=== PATIENT | male | born 1970 ===

== ENCOUNTER → 2024-09-20 07:50 | Outpatient (BNVA) | payer MEDICAID, SELFPAY | PROVIDERS: PCP Physician Assistant; Visit Provider Urology | DX: R36.1 Hematospermia (principal); N40.0 Benign prostatic hyperplasia without lower urinary tract symptoms | CPT/HCPCS: 81003; 99202 ==

== ENCOUNTER 2024-10-14 10:17 | Outpatient (REF) | payer MEDICAID, SELFPAY ==
--- NOTE | ~2024-10-14 | US_ITS ---
CLINICAL HISTORY: R36.1 - Hematospermia, BPH US retroperitoneum with color Doppler Comparison: None Findings: Right kidney normal size and echotexture, 12.0 cm length. No hydronephrosis. Normal color flow. No nephrolithiasis. No renal masses. Left kidney normal size and echotexture, 11.5 cm in length. No hydronephrosis. Normal color flow. No nephrolithiasis. Renal cortical cysts probably benign upper pole measuring 10 x 13 x 9 mm. Urinary bladder is unremarkable. Prevoid volume 149 mL. Postvoid volume 9.7 mL. Ureteral jets are visualized bilaterally. Prostate gland measures 2.7 x 3.6 x 4.1 cm. Equivocal cyst within the prostate gland. Impression: 1. Probable incidental renal cortical cysts on the left, six-month follow-up ultrasound would suffice. 2. No elevated postvoid residual volume. 3. Prostate volume at 21.5 cc. Equivocal cyst within the prostate gland. This document has been electronically signed by: Ronaldo Ta MD on 10/16/2024 13:56:22
--- OUTSIDE RECORDS SUMMARY | 2024-10-14 12:14 | XMS_ITS | Clinical Summary ---
Author Organization [facility] Address [address] [place] [address] Care Team Providers Care Dural Mechanic Name Role Phone Amy Ashton PA-C Primary Care Provider + [phone] Source Comments PLEASE NOTE, if this patient is a minor, it may be UNLAWFUL to discuss sensitive information that is contained in these records (such as FAMILY PLANNING, MENTAL HEALTH or SUBSTANCE ABUSE) with the minor patient's parent or other person without the patient's specific authorization.[facility] Allergies No known active allergies Medications nystatin-triamc inolone (MYCOLOG) 100,000-0.1 unit/gram-% ointmentIndicat ions:Balanitis Apply topically 2 (two) times daily 60 g 1 9 Active tamsulosin (FLOMAX) 0.4 mg 24 hr capsuleIndicati ons:Lower urinary tract symptoms (LUTS) Take 1 Cap by mouth nightly at bedtime 30 Cap 11 9 Active Active Problems Problem Noted Date Diagnosed Date Mild hyperlipidemia 08/20/2022 Family history of optic nerve atrophy 10/31/2017 Encounters Date Type Department Care Team Description 07/19/2024 3:40 PM EST Telemedicine Visit [address] [id number] Amy Ashton PA-C Hematospermia (Primary Dx); Mild hyperlipidemia 07/19/2024 Travel from Last 3 Months Social History Tobacco Use Types Packs/Day Years Used Date Smoking Tobacco: Never Smokeless Tobacco: Never Tobacco Cessation:Counseling Given: Yes Alcohol Use Standard Drinks/Week Comments No 0 (1 standard drink = 0.6 oz pur e alcohol) Social Connections Answer Date Recorded Connectedness 0 07/03/2021 Financial Resource Strain Answer Date R ecorded Financial Resource Strain 0 2020 Stress Answer Date Recorded Stress 0 07/03/2021 Physical Activity Answer Date Recorded Physical Activity 0 04/03/2019 Food Insecurity Answer Date Recorded Food 0 07/03/2021 Transportation Needs Answer Date Record ed Transportation 0 07/03/2021 Housing Stability Answer Date Recorded Housing 0 07/03/2021 Safety and Environment Answer Date Harley rded Safety 0 04/03/2019 Utilities Answer Date Recorded Utilities 0 07/03/2021 Employment Answer Date Recorded Stress 0 10/29/2021 Sex and Gender Information Value Date Recorded Sex Assigned at Male 11/02/2017 5:48 PM PDT Legal Sex Male 9:28 AM PDT Gender Identity Male 11/02/2017 5:48 PM PDT Sexual Orientation Straight 11/02/2017 5: 48 PM PDT Last Filed Vital Signs Vital Sign Reading Time Taken Comments Blood Pressure 122/80 08/29/2023 8:58 AM EST Pulse 76 08/29/2023 8:58 AM EST Temperature 36.9 ??C (98.4 ??F) 08/29/2023 8:58 AM ES T Respiratory Rate 16 08/29/2023 8:58 AM EST Oxygen Saturation 98% 08/20/2022 8:47 AM EST Inhaled Oxygen Concentration - - Weight 96.6 kg (212 lb 14.4 oz) 08/29/2023 8:58 AM EST Height 200.7 cm (6' 7 ) 08/29/2023 8:58 AM EST Body Mass Index 23.98 08/29/2023 8:58 AM EST Plan of Treatment Health Maintenance Due Date Last Done Comments CT Colonography 2017 Colonoscopy 2017 Colorectal Cancer Screening 2017 FIT/gFOBT 2017 Fecal DNA 2017 Flexible Sigmoidoscopy 2017 Alcohol and Drug Screen 08/11/2024 08/29/19, 08/20/2022, 07/03/2021, Additional history exists Depression Annual Screen 08/11/2024 08/29/2023 Hypertension Screening (#1) 08/28/2024 Annual Preventive Care Visit 08/29/2024 08/29/2023, 08/20/2022, 07/03/2021, Additional history exists Imm-DTaP/Tdap/Td (1 - Tdap) 10/17/2024 Postponed from 1991 (Patient postponement) Imm-Hepatitis B (1 of 3 - 19+ 3-dose series) 10/17/2024 Postponed from 1991 (Patient postponement) Imm-Zoster, Recombinant (1 of 2) 10/17/2024 Postponed from 2022 (Patient postponement) Tobacco Screening 07/19/2025 07/19/2024 Diabetes Screening 07/21/2027 07/21/2024, 0 08/29/2023, 08/29/2023, Additional history exists Lipid Screening 07/21/2029 07/21/2024, 08/11, 08/20/2022, Additional history exists HIV Screening Completed 10/31/2017 Hepatitis C Screening Completed 10/31/2017 [id number] Discontinued Imm-Influenza Discontinued Procedures Procedure Name Priority Date/Time Associated Diagnosis Comments REFERRAL TO UROLOGY Routine 09/20/2024 3 :00 AM EST Hematospermia RFLX - REFLEXIVE URINE CULTURE Routine 07/21/2024 1:28 PM EST ASSAY OF PROSTATE SPECIFIC ANTIGEN TOTAL Routine 07/21/2024 1:28 PM EST Hematospermia Mild hyperlipidemia BLOOD COUNT COMPLETE AUTO&AUTO DIFRNTL WBC Routine 07/21/2024 1:28 PM EST Hematospermia Mild hyperlipidemia COMPREHENSIVE METABOLIC PANEL Routine 07/21/2024 1:28 PM EST Hematospermia Mild hyperlipidemia LIPID PANEL Routine 07/21/2024 1:28 PM EST Hematospermia Mild hyperlipidemia TSH W/RFLX FREE T4 Routine 07/21/2024 1: 28 PM EST Hematospermia Mild hyperlipidemia URINALYSIS, COMPLETE W/REFLEX TO CULTURE Routine 07/21/2024 1:28 PM EST Hematospermia Mild hyperlipidemia ANTIBODY HIV-1&HIV-2 SINGLE RESULT Routine 10/31/2017 3:08 PM EDT Routine general medical examination at a health care facility Balanitis Screening examination for venereal disease HEPATITIS C ANTIBODY Routine 10/31/2017 3:08 PM EDT Routine general medical examination at a health care facility Balanitis Screening examination for venereal disease from Last 3 Months or Most Recently Relevant to Health Maintenance Results * REFERRAL TO UROLOGY (09/20/2024 3:00 AM EST) 09/20/2024 3:00 AM EST us Amy Ashton PA-C REFERRAL Final Result * TSH W/RFLX FREE T4 (07/21/2024 1:28 PM EST) TSH W/REFLEX TO FT4 2.50 0.40 - 4.50 mIU/L [facility] Blood Blood / Unknown 07/21/2024 1 :28 PM EST 07/21/2024 1:29 PM EST Narrative [facility] - 07/22/2024 5:35 AM EST FASTING:NO us Amy Ashton PA-C LAB - BLOOD DRAW Edited Resu lt - Final [facility] [address] [address], [facility] [address] [address] * URINALYSIS, COMPLETE W/REFLEX TO CULTURE (07/21/2024 1:28 PM EST) COLOR YELLOW YELLOW [facility] APPEARANCE CLEAR CLEAR [facility] SPECIFIC GRAVITY 1.022 1.001 - 1.035 [facility] URINE PH < OR = 5.0 5.0 - 8.0 [facility] GLUCOSE NEGATIVE NEGATIVE [facility] BILIRUBIN NEGATIVE NEGATIVE [facility] KETONES NEGATIVE NEGATIVE [facility] OCCULT BLOOD NEGATIVE NEGATIVE [facility] URINE PROTEIN NEGATIVE NEGATIVE [facility] NITRITE NEGATIVE NEGATIVE [facility] LEUKOCYTE ESTERASE NEGATIVE NEGATIVE [facility] URINE LEUKOCYTES NONE SEEN < OR = 5 [facility] RBC 0-2 0 - 2 /HPF [facility] SQUAMOUS EPITHELIAL CELLS NONE SEEN < OR = 5 [facility] BACTERIA NONE SEEN NONE SEEN [facility] HYALINE CAST NONE SEEN NONE SEEN [facility] SEE NOTE See Below [facility] Comment: This urine was analyzed for the presence of WBC, RBC, bacteria, casts, and other formed elements. Only those elements seen were reported. Urine Urine specimen / Unknown 07/21/2024 1:28 PM EST 07/21/2024 1:29 PM EST Narrative [facility] - 07/22/2024 5:35 AM EST FASTING:NO Amy Ashton PA-C LAB - NO BLOOD DRAW Edited R [employer] Performing Organization Address [facility] de Phone Number [facility] [address] [address], [facility] [address] [address] * RFLX - REFLEXIVE URINE CULTURE (07/21/2024 1:28 PM EST) REFLEXIVE URINE CULTURE See Below [facility] Comment:NO CULTURE INDICATED 07/21/2024 1:28 PM EST 07/21/2024 1:29 PM EST Narrative [facility] - 07/22/2024 5:35 AM EST FASTING:NO Amy Ashton PA-C LAB - NO BLOOD DRAW Edited R [employer] - Final Performing Organization Address [facility] de Phone Number [facility] [address] [address], [facility] [address] [address] * (ABNORMAL) BLOOD COUNT COMPLETE AUTO&AUTO DIFRNTL WBC (07/21/2024 1:28 PM EST) WHITE BLOOD CELL COUNT 11.4(H) 3.8 - 10.8 Thousand/ uL [facility] RED BLOOD CELL COUNT 5.32 4.20 - 5.80 Million/u L [facility] HEMOGLOBIN 15.5 13.2 - 17.1 g/dL [facility] HEMATOCRIT 46.4 38.5 - 50.0 % [facility] MCV 87.2 80.0 - 100.0 fL [facility] MCH 29.1 27.0 - 33.0 pg [facility] MCHC 33.4 32.0 - 36.0 g/dL [facility] Comment: For adults, a slight decrease in the calculated MCHC value (in the range of 30 to 32 g/dL) is most likely not clinically significant; however, it should be interpreted with caution in correlation with other red cell parameters and the patient's clinical condition. RDW 12.8 11.0 - 15.0 % [facility] PLATELET COUNT 284 140 - 400 Thousand/ uL [facility] MPV 11.2 7.5 - 12.5 fL [facility] ABSOLUTE NEUTROPHILS 5,312 1,500 - 7,800 cells/uL [facility] ABSOLUTE LYMPHOCYTES 4,492(H) 850 - 3,900 cells/uL [facility] ABSOLUTE MONOCYTES 1,174(H) 200 - 950 cells/uL [facility] ABSOLUTE EOSINOPHILS 342 15 - 500 cells/uL [facility] ABSOLUTE BASOPHILS 80 0 - 200 cells/uL [facility] NEUTROPHILS PCT 46.6 % [employer] [facility] LYMPHOCYTES 39.4 % [facility] MONOCYTES 10.3 % [facility] EOSINOPHILS 3.0 % [facility] BASOPHILS 0.7 % [facility] Blood Blood / Unknown 07/21/2024 1 :28 PM EST 07/21/2024 1:29 PM EST Narrative [facility] - 07/22/2024 5:35 AM EST FASTING:NO us Amy Ashton PA-C LAB - BLOOD DRAW Final Resul t [facility] [address] [place] [address], [facility] [address] [address] * ASSAY OF PROSTATE SPECIFIC ANTIGEN TOTAL (07/21/2024 1:28 PM EST) PSA, TOTAL 0.41 < OR = 4.00 ng/mL [facility] Comment: The total PSA value from this assay system is standardized against the WHO standard. The test result will be approximately 20% lower when compared to the equimolar-standardized total PSA (Jeny Addie). Comparison of serial PSA results should be interpreted with this fact in mind. This test was performed using the Siemens chemiluminescent method. Values obtained from different assay methods cannot be used interchangeably. PSA levels, regardless of value, should not be interpreted as absolute evidence of the presence or absence of disease. Blood Blood / Unknown 07/21/2024 1 :28 PM EST 07/21/2024 1:29 PM EST Narrative [facility] - 07/22/2024 5:35 AM EST FASTING:NO us Amy Ashton PA-C LAB - BLOOD DRAW Edited Resu lt - Final [facility] [address] [address], [facility] [address] [address] * (ABNORMAL) LIPID PANEL (07/21/2024 1:28 PM EST) CHOLESTEROL, TOTAL 232(H) <200 mg/dL [facility] HDL CHOLESTEROL 42 > OR = 40 mg/dL [facility] TRIGLYCERIDES 220(H) <150 mg/dL [facility] Comment: If a non-fasting specimen was collected, consider repeat triglyceride testing on a fasting specimen if clinically indicated. Victor Hugo et al. J. of Clin. Lipidol. 2015;9:129-169. LDL-CHOLESTEROL 151(H) 99 mg/dL (calc) [facility] Comment: Reference range: <100 Desirable range <100 mg/dL for primary prevention; ?? <70 mg/dL for patients with CHD or diabetic patients with > or = 2 CHD risk factors. LDL-C is now calculated using the Radha calculation, which is a validated novel method providing better accuracy than the Friedewald equation in the estimation of LDL-C. Albert SERRANO et al. MARTÍNEZ. 2013;310(19): 1694-7466 (http://education.Biocept.Gameology/faq/EWU436) CHOL/HDLC RATIO 5.5(H) <5.0 (calc) [facility] NON-HDL CHOLESTEROL 190(H) <130 mg/dL (calc) [facility] Comment: For patients with diabetes plus 1 major ASCVD risk factor, treating to a non-HDL-C goal of <100 mg/dL (LDL-C of <70 mg/dL) is considered a therapeutic option. Blood Blood / Unknown 07/21/2024 1 :28 PM EST 07/21/2024 1:29 PM EST Narrative [facility] - 07/22/2024 5:35 AM EST FASTING:NO us Amy Ashton PA-C LAB - BLOOD DRAW Final Resul t [facility] [address] [address], [facility] [address] [place] [phone] * (ABNORMAL) COMPREHENSIVE METABOLIC PANEL (07/21/2024 1:28 PM EST) Pathologist [facility] GLUCOSE 97 65 - 139 mg/dL [facility] Comment: ?Non-fasting reference interval UREA NITROGEN (BUN) 19 7 - 25 mg/dL [facility] CREATININE (blood) 0.81 0.70 - 1.30 mg/dL [facility] EGFR 107 > OR = 60 mL/min/1. 73m2 [facility] BUN/CREATININE RATIO SEE NOTE: [facility] Comment: ?? Not Reported: BUN and Creatinine are within ?? reference range. ? SODIUM 139 135 - 146 mmol/L [facility] POTASSIUM 4.2 3.5 - 5.3 mmol/L [facility] CHLORIDE 103 98 - 110 mmol/L [facility] CARBON DIOXIDE 27 20 - 32 mmol/L [facility] CALCIUM 9.5 8.6 - 10.3 mg/dL [facility] PROTEIN, TOTAL 6.9 6.1 - 8.1 g/dL [facility] ALBUMIN 4.5 3.6 - 5.1 g/dL [facility] GLOBULIN 2.4 1.9 - 3.7 g/dL (calc) [facility] ALBUMIN/GLOBULI N RATIO 1.9 1.0 - 2.5 (calc) [facility] BILIRUBIN, TOTAL 0.4 0.2 - 1.2 mg/dL [facility] ALKALINE PHOSPHATASE 34(L) 35 - 144 U/L [facility] AST 20 10 - 35 U/L [facility] ALT 32 9 - 46 U/L [facility] Blood Blood / Unknown 07/21/2024 1 :28 PM EST 07/21/2024 1:29 PM EST Narrative [facility] - 07/22/2024 5:35 AM EST FASTING:NO Amy Ashton PA-C LAB - BLOOD DRAW Edited Resu lt - Final Performing Organization Address City/[facility] Co de Phone Number [facility] [address] [address], [facility] [address] [address] * HEPATITIS C ANTIBODY (10/31/2017 3:08 PM EDT) [facility] HEPATITIS C VIRUS SCREEN NEGATIVE NEGATIVE [facility] Blood specimen (specimen) Blood / Unknown 10/31/2017 3:08 PM EDT 10/31/2017 3:15 PM EDT Narrative [facility] - 10/31/2017 8:18 PM EDT [employer] [address] [place] [address] PT ID [id number] ORD# [id number] Amy Ashton PA-C LAB - BLOOD DRAW Final Resul t Performing Organization Address [facility]/ZIP Co de Phone Number [address] [address], * HIV-1 & HIV-2 ANTIBODIES (10/31/2017 3:08 PM EDT) Pathologist [facility] HIV 1 AND 2 ANTIBODY SCREEN NEGATIVE NEGATIVE [facility] Comment: This assay is a 4th generation assay allowing for earlier detection of HIV infection by detecting the presence of the HIV-1 p24 antigen as well as the traditional antibodies to HIV type 1 (including group O) and type 2. ??Use of a 4th generation assay is the current CDC recommendation for HIV screening. Blood specimen (specimen) Blood / Unknown 10/31/2017 3:08 PM EDT 10/31/2017 3:15 PM EDT [facility] - 10/31/2017 8:19 PM EDT [facility] [address] [place] [address] PT ID [id number] ORD# [id number] us Amy Ashton PA-C LAB - BLOOD DRAW Final Resul t [address] [address], from Last 3 Months or Most Recently Relevant to Health Maintenance Insurance [facility] [facility] [employer] Care Teams Dural Mechanic Relationship Specialty Start Date End Date Amy Ashton PA-C [address] [place] [address] PCP - General Internal Medicine 04/12/21
== END 2024-10-14 10:18 | disposition home or self-care (01) ==
LOC: HO.US 10:17
PROVIDERS: PCP Physician Assistant; Visit Provider Urology
DX: R36.1 Hematospermia (principal); N40.0 Benign prostatic hyperplasia without lower urinary tract symptoms
CPT/HCPCS: 76770

== ENCOUNTER → 2024-10-14 10:25 | Outpatient (BNV) | payer MEDICAID, SELFPAY | PROVIDERS: PCP Physician Assistant; Visit Provider Radiology Diagnostic Radiology | DX: R36.1 Hematospermia (principal) | CPT/HCPCS: 76770 ==

== ENCOUNTER 2024-11-15 07:47 | Outpatient (AMB) | payer MEDICAID, SELFPAY ==
--- OUTSIDE RECORDS SUMMARY | 2024-11-15 07:51 | XMS_ITS | Clinical Summary ---
Author Organization [facility] Address [address] [place] [address] Care Team Providers Care Internal Investigator Name Role Phone Amy Ashton PA-C Primary Care Provider [phone] Source Comments PLEASE NOTE, if this patient [...] Family history of optic nerve atrophy 10/31/2017 Social History Tobacco Use Types Packs/Day Years [...] Health Maintenance Due Date Last Done Comments Anxiety Screening 1972 Imm-DTaP/Tdap/Td (1 - Tdap) 1991 Imm-Hepatitis B (1 of 3 - 19 + 3-dose series) 1991 CT Colonography 2017 Colonoscopy 2017 Colorectal Cancer Screening 2017 FIT/gFOBT 2017 Fecal DNA 2017 Flexible Sigmoidoscopy 2017 Imm-Zoster, Recombinant (1 of 2) 2022 Alcohol and Drug Screen 08/11/2024 08/29/19 24, 08/20/2022, 07/03/2021, Additional history exists Depression Annual Screen 08/11/2024 08/29/2023 Hypertension Screening (#1) 08/28/2024 Annual Preventive Care Visit 08/29/2024, 08/20/2022, 07/03/2021, Additional history exists Tobacco Screening 07/19/2025 07/19/2024 Diabetes Screening 07/21/2027 07/21/2024, 0 08/29/2023, 08/29/2023, Additional history exists Lipid Screening 07/21/2029 07/21/2024, 08/11, 08/20/2022, Additional history exists HIV Screening Completed 10/31/2017 Hepatitis C Screening Completed 10/31/2017 [id number] Discontinued Imm-Influenza Discontinued Procedures Procedure Name Priority Date/Time Associated Diagnosis Comments IMAGING SCANNED DOCUMENT 10/14/2024 3:00 AM EST IMAGING SCANNED DOCUMENT 10/14/2024 3:00 AM EST REFERRAL TO UROLOGY Routine 09/20/2024 3 :00 AM EST Hematospermia COMPREHENSIVE METABOLIC PANEL Routine 07/21/2024 1:28 PM [...] Recently Relevant to Health Maintenance Results * IMAGING SCANNED DOCUMENT (10/14/2024 3:00 AM EST) Only the most recent of2 resultswithin the time period is included. 10/14/2024 3:00 AM EST us Amy Ashton PA-C SCAN IMAGING Final Result * REFERRAL TO UROLOGY (09/20/2024 3:00 AM EST) 09/20/2024 3:00 AM EST us Amy Coelhokin PA-C REFERRAL Final Result * (ABNORMAL) LIPID PANEL (07/21/2024 1:28 PM EST) [facility] CHOLESTEROL, TOTAL 232(H) <200 mg/dL [facility] HDL CHOLESTEROL 42 > OR = 40 mg/dL [facility] TRIGLYCERIDES 220(H) <150 mg/dL [facility] Comment: If a non-fasting specimen was collected, consider repeat triglyceride testing on a fasting specimen if clinically indicated. Victor Hugo et al. J. of Clin. Lipidol. 2015;9:129-169. LDL-CHOLESTEROL 151(H) 99 mg/dL (calc) [facility] Comment: Reference range: <100 Desirable range <100 mg/dL for primary prevention; ?? <70 mg/dL for patients with CHD or diabetic patients with > or = 2 CHD risk factors. LDL-C is now calculated using the Radha calculation, which is a validated novel method providing better accuracy than the Friedewald equation in the estimation of LDL-C. Albert SS et al. MARTÍNEZ. 2013;310(19): 9113-4729 (http://education.Deja View Concepts/faq/ZND606) CHOL/HDLC RATIO 5.5(H) <5.0 (calc) [facility] NON-HDL CHOLESTEROL 190(H) <130 mg/dL (calc) [facility] Comment: For patients with diabetes plus 1 major ASCVD risk factor, treating to a non-HDL-C goal of <100 mg/dL (LDL-C of <70 mg/dL) is considered a therapeutic option. Blood Blood / Unknown 07/21/2024 1 :28 PM EST 07/21/2024 1:29 PM EST Narrative [facility] - 07/22/2024 5:35 AM EST FASTING:NO us Amy Ashton PA-C LAB - BLOOD DRAW Final Resul t [facility] [address] [address], [facility] [address] [place] [address] * (ABNORMAL) COMPREHENSIVE METABOLIC PANEL (07/21/2024 1:28 PM EST) [facility] GLUCOSE 97 65 - 139 mg/dL [facility] Comment: ?Non-fasting reference interval UREA NITROGEN (BUN) 19 7 - 25 mg/dL [facility] CREATININE (blood) 0.81 0.70 - 1.30 mg/dL [facility] EGFR 107 > OR = 60 mL/min/1. 73m2 [facility] BUN/CREATININE RATIO SEE NOTE: [facility] Comment: ?? Not Reported: BUN and Creatinine are within ?? reference range. ? SODIUM 139 135 - 146 mmol/L [facility] POTASSIUM 4.2 3.5 - 5.3 mmol/L [facility] CHLORIDE 103 98 - 110 mmol/L [facility] CARBON DIOXIDE 27 20 - 32 mmol/L [facility] CALCIUM 9.5 8.6 - 10.3 mg/dL [facility] PROTEIN, TOTAL 6.9 6.1 - 8.1 g/dL [facility] ALBUMIN 4.5 3.6 - 5.1 g/dL [facility] GLOBULIN 2.4 1.9 - 3.7 g/dL (calc) [facility] ALBUMIN/GLOBULI N RATIO 1.9 1.0 - 2.5 (calc) [facility] BILIRUBIN, TOTAL 0.4 0.2 - 1.2 mg/dL [facility] ALKALINE PHOSPHATASE 34(L) 35 - 144 U/L [facility] AST 20 10 - 35 U/L [facility] ALT 32 9 - 46 U/L [facility] Blood Blood / Unknown 07/21/2024 1 :28 PM EST 07/21/2024 1:29 PM EST Narrative [facility] - 07/22/2024 5:35 AM EST FASTING:NO us Amy Ashton PA-C LAB - BLOOD DRAW Edited Resu lt - Final [facility] [address] [address], [employer] [facility] [address] [place] [address] * HEPATITIS C ANTIBODY (10/31/2017 3:08 PM EDT) HEPATITIS C VIRUS SCREEN NEGATIVE NEGATIVE [facility] Blood specimen (specimen) Blood / Unknown 10/31/2017 3:08 PM EDT 10/31/2017 3:[address] [facility] - 10/31/2017 8:18 PM EDT [facility] [address] [place] [address] PT ID [id number] ORD# [id number] Amy Ashton PA-C LAB - BLOOD DRAW Final Resul t Performing Organization Address [facility]/ZIP Co de Phone Number [address] [address], * HIV-1 & HIV-2 ANTIBODIES (10/31/2017 3:08 PM EDT) [facility] HIV 1 AND 2 ANTIBODY SCREEN NEGATIVE NEGATIVE [facility] Comment: This assay is a 4th generation [...] 3:08 PM EDT 10/31/2017 3:[address] [facility] - 10/31/2017 8:19 PM EDT [facility] [address] [place] [address] PT ID [id number] ORD# [id number] Amy Ashton PA-C LAB - BLOOD DRAW Final Resul t Performing Organization Address City/[facility]/ZIP Co de Phone Number [address] [address], [place] [phone] from Last 3 Months or Most Recently Relevant to Health Maintenance Insurance [id number] [facility] Care Teams Internal Investigator Relationship Specialty Start Date End Date Amy Ashton PA-C [address] [place] [phone] PCP - General Internal Medicine 04/12/21
--- NOTE | 2024-11-15 07:53 | MHC.OFFVIS ---
Intake Visit Reasons: 8 weeks follow up/ US Intake Note: Patient is present for 8 week ultrasound Urology Medication: none Antibiotic Allergy:NONE Blood Thinner:NONE Metal Extrusion Supervisor Required: Yes Metal Extrusion Supervisor Services: Metal Extrusion Supervisor Present (arlet) Metal Extrusion Supervisor Name: [id number] Information Interpreted: non-clinical & clinical Allergies No Known Allergies Allergy (Verified 09/20/24 08:27) HPI Comments Details: 11/15/24--Des is a 54-year-old [place]-speaking male who is here for evaluation due to hematospermia. Initially evaluated 09/20/2024. The patient states after sexual activity he noted blood in his semen. He denies pain with ejaculation. He denies dysuria. I have reviewed blood work patient had PSA 07/21/2024--0.41 ng/mL. He was started on tamsulosin by PCP but stopped medication. I have reviewed renal ultrasound-10/14/2024--findings are within normal limits tiny left renal cyst and the equivocal prostatic cyst, findings are clinically not significant. bladder within normal limits prostate estimated volume size 21.5 mL. Urinalysis blood-25, no signs of infection. 30 minutes spent in review of records pertaining to this visit and including [id number] discussion with the patient and documentation of this visit. Will send urine cytology. 09/20/24--Des is a 54-year-old [place]-speaking male who is here for evaluation due to hematospermia. The patient states a couple of months ago after sexual activity he noted blood in his semen. He denies pain with ejaculation. He denies dysuria. I have reviewed blood work patient had PSA 07/21/2024--0.41 ng/mL. I have discussed most common cause for hematospermia includes infectious versus inflammatory and blood in the sperm and can be seen after aggressive sexual activity. No indications for infection at this time. The patient states he was prescribed tamsulosin by his PCP and currently is not using the medication. He states he has a good urinary flow. I will check an ultrasound of the urinary tract/prostate. [facility] Medical History Mild hyperlipidemia Optic nerve atrophy Review of Systems Const All systems reviewed & are unremarkable except as noted in HPI and below Reports no additional complaints Eyes Reports no additional complaints ENT Reports no additional complaints Card Reports no additional complaints Resp Reports no additional complaints GI Reports no additional complaints Reports as per HPI Musc Reports no additional complaints Skin/Breast Reports system reviewed and no additional complaints, except as documented Neuro Reports no additional complaints Psych Reports no additional complaints Endo Reports no additional complaints Sin/Lymph Reports no additional complaints Aller/Immun Reports no additional complaints Results AMB Urinalysis, Automated UA Leukoctes 0 Eun/uL Last Edit by Joseph Alcala LPN on 11/15/24 08:12 UA Nitrite Negative Last Edit by Joseph Alcala LPN on 11/15/24 08:12 UA Urobilinogen 0.2 mg/dL Last Edit by Joseph Alcala LPN on 11/15/24 08:12 UA Protein 0 mg/dL Last Edit by Joseph Alcala LPN on 11/15/24 08:12 UA pH 5.0 Last Edit by Joseph Alcala LPN on 11/15/24 08:12 UA Blood 25 Donell/uL Last Edit by Joseph Alcala LPN on 11/15/24 08:12 UA Specific Galt 1.020 Last Edit by Joseph Alcala LPN on 11/15/24 08:12 UA Ketone Negative Last Edit by Joseph Alcala LPN on 11/15/24 08:12 UA Bilirubin 0 mg/dL Last Edit by Joseph Alcala LPN on 11/15/24 08:12 UA Glucose 0 mg/dL Last Edit by Joseph Alcala LPN on 11/15/24 08:12 Results Reviewed Results Reviewed: Laboratory Last Values Urine pH (Auto) 5.0 11/15/24 08:11 Specific Galt (Auto) 1.020 11/15/24 08:11 Urine Protein (Auto) 0 mg/dL 11/15/24 08:11 Glucose (UA)(Auto) 0 mg/dL 11/15/24 08:11 Urine Ketones (Auto) Negative 11/15/24 08:11 Urine Blood (Auto) 25 Donell/uL 11/15/24 08:11 Urine Nitrite (Auto) Negative 11/15/24 08:11 Urine Bilirubin (Auto) 0 mg/dL 11/15/24 08:11 Urine Urobilinogen (Auto) 0.2 mg/dL 11/15/24 08:11 Leukocyte Esterase (Auto) 0 Eun/uL 11/15/24 08:11 Date of Service: 10/14/24 Monitor US retroperitoneum with color Doppler Comparison: None Findings: Right kidney normal size and echotexture, 12.0 cm length. No hydronephrosis. Normal color flow. No nephrolithiasis. No renal masses. Left kidney normal size and echotexture, 11.5 cm in length. No hydronephrosis. Normal color flow. No nephrolithiasis. Renal cortical cysts probably benign upper pole measuring 10 x 13 x 9 mm. Urinary bladder is unremarkable. Prevoid volume 149 mL. Postvoid volume 9.7 mL. Ureteral jets are visualized bilaterally. Prostate gland measures 2.7 x 3.6 x 4.1 cm. Equivocal cyst within the prostate gland. Impression: 1. Probable incidental renal cortical cysts on the left, six-month follow-up ultrasound would suffice. 2. No elevated postvoid residual volume. 3. Prostate volume at 21.5 cc. Equivocal cyst within the prostate gland. Assessment & Plan Assessment & Plan (1) Hematospermia: Code(s): R36.1 - Hematospermia Category: Medical (2) BPH (benign prostatic hyperplasia): Code(s): N40.0 - Benign prostatic hyperplasia without lower urinary tract symptoms Category: Medical (3) Microscopic hematuria: Code(s): R31.29 - Other microscopic hematuria Category: Medical Plan I have reviewed renal ultrasound-10/14/2024--findings are within normal limits tiny left renal cyst and the equivocal prostatic cyst, findings are clinically not significant. bladder within normal limits prostate estimated volume size 21.5 mL. Urinalysis blood-25, no signs of infection. We will send urine cytology. Orders: Orders AMB Urinalysis Automated Today N40.0 - Benign prostatic hyperplasia without lower urinary tract symptoms, R36.1 - Hematospermia Patient Instructions: The patient had an opportunity to ask questions regarding treatment plan. The patient expressed understanding and agreement with the above treatment plan. The patient is aware they should contact our office by phone for worsening of their current condition or the appearance of new symptoms. Compliance is encouraged with any medications and followup testing that is ordered. It is a privilege to be allowed the opportunity to participate in the urologic care of your patient. If you have any questions or concerns regarding treatment for the above conditions please do not hesitate to contact me. The office telephone contact is [phone]. This note is constructed in part using voice recognition software. While every effort has been made to ensure accuracy heart coordinator errors may have been included. Yours sincerely, Lupe Bernal MD Coding Level of Care Code Est Pt Level 4 (44733) Diagnoses Hematospermia R36.1 BPH (benign prostatic hyperplasia) N40.0 Microscopic hematuria R31.29
== END 2024-11-15 09:27 | disposition home or self-care (01) ==
PROVIDERS: PCP Physician Assistant; Visit Provider Urology
DX: R36.1 Hematospermia (principal); N40.0 Benign prostatic hyperplasia without lower urinary tract symptoms; R31.29 Other microscopic hematuria
CPT/HCPCS: 99214

== ENCOUNTER 2024-11-15 07:47 | Outpatient (REF) | payer MEDICAID, SELFPAY ==
--- OUTSIDE RECORDS SUMMARY | 2024-11-15 10:47 | XMS_ITS | Clinical Summary ---
Author Organization [facility] Address [address] [place] [address] Care Team Providers Care Business Education Teacher Name Role Phone Amy Ashton PA-C Primary Care Provider [phone] Source Comments PLEASE NOTE, if this patient [...] Completed 10/31/2017 Hepatitis C Screening Completed 10/31/2017 [id number] Discontinued Imm-Influenza Discontinued Procedures Procedure Name Priority [...] (ABNORMAL) LIPID PANEL (07/21/2024 1:28 PM EST) [facility] CHOLESTEROL, TOTAL 232(H) <200 mg/dL [facility] HDL CHOLESTEROL 42 > OR = 40 mg/dL [facility] TRIGLYCERIDES 220(H) <150 mg/dL [facility] Comment: If a non-fasting specimen was collected, consider repeat triglyceride testing on a fasting specimen if clinically indicated. Victor Hugo et al. J. of Clin. Lipidol. 2015;9:129-169. LDL-CHOLESTEROL 151(H) 99 mg/dL (calc) [facility] Comment: Reference range: <100 Desirable range <100 mg/dL for primary prevention; ?? <70 mg/dL for patients with CHD or diabetic patients with > or = 2 CHD risk factors. LDL-C is now calculated using the Radha calculation, which is a validated novel method providing better accuracy than the Friedewald equation in the estimation of LDL-C. Albert SS et al. MARTÍNEZ. 2013;310(19): 5547-1698 (http://education.Invidio/faq/RSC735) CHOL/HDLC RATIO 5.5(H) <5.0 (calc) [facility] NON-HDL CHOLESTEROL 190(H) <130 mg/dL (calc) [facility] Comment: For patients with diabetes plus 1 major ASCVD risk factor, treating to a non-HDL-C goal of <100 mg/dL (LDL-C of <70 mg/dL) is considered a therapeutic option. Blood Blood / Unknown 07/21/2024 1 :28 PM EST 07/21/2024 1:29 PM EST Narrative [facility] - 07/22/2024 5:35 AM EST FASTING:NO us Amy Ashton PA-C LAB - BLOOD DRAW Final Resul t [facility] [address] [address], [facility] [address] [place] [address] * (ABNORMAL) COMPREHENSIVE METABOLIC PANEL (07/21/2024 1:28 PM EST) [facility] GLUCOSE 97 65 - 139 mg/dL [facility] Comment: ?Non-fasting reference interval UREA NITROGEN (BUN) 19 7 - 25 mg/dL [facility] CREATININE (blood) 0.81 0.70 - 1.30 mg/dL [facility] EGFR 107 > OR = 60 mL/min/1. 73m2 [facility] BUN/CREATININE RATIO SEE NOTE: [facility] Comment: ?? Not Reported: BUN and Creatinine are within ?? reference range. ? SODIUM 139 135 - 146 mmol/L [facility] POTASSIUM 4.2 3.5 - 5.3 mmol/L [facility] CHLORIDE 103 98 - 110 mmol/L [facility] CARBON DIOXIDE 27 20 - 32 mmol/L [facility] CALCIUM 9.5 8.6 - 10.3 mg/dL [facility] PROTEIN, TOTAL 6.9 6.1 - 8.1 g/dL [facility] ALBUMIN 4.5 3.6 - 5.1 g/dL [facility] GLOBULIN 2.4 1.9 - 3.7 g/dL (calc) [facility] ALBUMIN/GLOBULI N RATIO 1.9 1.0 - 2.5 (calc) [facility] BILIRUBIN, TOTAL 0.4 0.2 - 1.2 mg/dL [facility] ALKALINE PHOSPHATASE 34(L) 35 - 144 U/L [facility] AST 20 10 - 35 U/L [facility] ALT 32 9 - 46 U/L [facility] Blood Blood / Unknown 07/21/2024 1 :28 PM EST 07/21/2024 1:29 PM EST Narrative [facility] - 07/22/2024 5:35 AM EST FASTING:NO us Amy Ashton PA-C LAB - BLOOD DRAW Edited Resu lt - Final [facility] [address] [address], [email or web address] [facility] [address] [place] [address] * HEPATITIS C ANTIBODY (10/31/2017 3:08 PM EDT) HEPATITIS C VIRUS SCREEN NEGATIVE NEGATIVE [facility] Blood specimen (specimen) Blood / Unknown 10/31/2017 3:08 PM EDT 10/31/2017 3:15 PM EDT [facility] - 10/31/2017 8:18 PM EDT [employer] [address] [place] [address] PT ID [id number] ORD# [id number] Amy Ashton PA-C LAB - BLOOD DRAW Final Resul t Performing Organization Address [facility]/ZIP Co de Phone Number [address] [address], * HIV-1 & HIV-2 ANTIBODIES (10/31/2017 3:08 PM EDT) [facility] HIV 1 AND 2 ANTIBODY SCREEN NEGATIVE NEGATIVE [facility] Comment: This assay is a 4th generation [...] 3:08 PM EDT 10/31/2017 3:15 PM EDT [facility] - 10/31/2017 8:19 PM EDT [employer] [address] [place] [address] PT ID [id number] ORD# [id number] Amy Ashton PA-C LAB - BLOOD DRAW Final Resul t Performing Organization Address City/[facility]/ZIP Co de Phone Number [address] [address], [place] [phone] from Last 3 Months or Most Recently Relevant to Health Maintenance Insurance [id number] [facility] Care Teams Business Education Teacher Relationship Specialty Start Date End Date Amy Ashton PA-C [address] [place] [id number] PCP - General Internal Medicine 04/12/21
[2024-11-15 17:16] LABS: Urine Cytology See Pathology rpt
== END 2024-11-15 07:48 | disposition home or self-care (01) ==
LOC: HO.LNP 07:47
PROVIDERS: PCP Physician Assistant; Visit Provider Urology
DX: R36.1 Hematospermia (principal); R31.29 Other microscopic hematuria; N40.0 Benign prostatic hyperplasia without lower urinary tract symptoms
CPT/HCPCS: 81003; 88112; 99212